=== PATIENT | female | born 1965 | race Caucasian/White ===

== ENCOUNTER 2017-07-21 05:33 | Emergency (ER) | payer BC ==
[~2017-07-21] VITALS: Ht 170.2 cm; Wt 81.6 kg
[2017-07-21 05:35] VITALS: BP_SYST 133
[2017-07-21] MEDS ORDERED: LORazepam 2 MG/ML VIAL IM ONE (05:45)
[2017-07-21] MEDS ORDERED: LORazepam 2 MG/ML VIAL (FOR ER USE) ONE (05:53)
[2017-07-21 06:30] VITALS: BP_SYST 127
== END 2017-07-21 06:30 | disposition home or self-care (01) ==
LOC: SED 05:33
DX: F41.9 Anxiety disorder, unspecified (principal); J45.909 Unspecified asthma, uncomplicated; F17.200 Nicotine dependence, unspecified, uncomplicated; Z88.0 Allergy status to penicillin; Z88.5 Allergy status to narcotic agent; Z88.1 Allergy status to other antibiotic agents; Z88.8 Allergy status to other drugs, medicaments and biological substances
CPT/HCPCS: 96372; 99284; J2060